=== PATIENT | female | born 1995 ===

== ENCOUNTER 2021-11-21 10:57 | Inpatient (IN) | payer OTHER ==
[~2021-11-21] VITALS: Ht 165.1 cm; Wt 78.2 kg
[2021-11-28] VITALS (51 sets, daily range): BP systolic 91–131; BP diastolic 51–82; PULSE 87–125; TEMP 97.7–98.5
--- NOTE | 2021-11-28 06:25 | NUR ---
0625-39.0 G2L1 Ambulatory to LDR 3 for scheudled induction of labor. Reports good EFM. Denies LOF or vaginal bleeding. Assisted into gown and placed on EFM. VSS. Reviewed plan of care, consents reivewed and signed. Assessment complete. IV to left hand by Ray Jesus RN. Blood collected and sent to lab per orders IVF, see EMAR.
--- NOTE | 2021-11-28 06:25 | NUR ---
0625- PATIENT AMBULATROY TO LABOR ROOM 3 WITH SPOUSE. PATIENT ORIENTED TO LABOR ROOM AND ASSISTED INTO A GOWN. EFM AND TOCO TRACING WELL. ASSESSMENT COMPLETE, CONSENTS EXPLAINED AND SIGNED, QUESTIONS ASKED AND ANSWERED. PATIENT REPORTS MILD CONTRACTIONS BEFORE ARRIVAL, NO FLUID LEAKING OR BLEEDING.
[2021-11-28] MEDS ORDERED: PRENATAL (06:55)
[2021-11-28] MEDS ORDERED: ZOFRAN ODT4 MG PO (06:56)
[2021-11-28 07:22] LABS: MEAN CELL VOLUME 82 fl (80.0-100.0); MEAN CORPUSCULAR HEMOGLOBIN 27 pg (27-31); MEAN CORPUSCULAR HGB CONC 33 g/dl (33.0-37.0); MEAN PLATELET VOLUME 10.6 fl (7.4-10.4); PLATELET COUNT 186 K/mm3 (130-400); RED BLOOD COUNT 3.74 M/mm3 (4.10-5.30); REDCELL DISTRIBUTION WIDTH-CV 14.3 % (11.5-14.5)
[2021-11-28 07:27] LABS: HEMATOCRIT 30.6 % (37.0-47.0)
[2021-11-28 08:30] LABS: BAND 1 % (0-10); EOSINOPHIL 1 % (0-4); HYPOCHROMIA 1+; LYMPHOCYTE 30 % (20.0-51.0); NEUTROPHILS 66 % (42.0-75.2); PLATELET ESTIMATE NORMAL (NORMAL)
--- NOTE | 2021-11-28 09:13 | NUR ---
0913-Dr. Azul on unit. Updated on patient. MD reviews FHR monitor while at desk. No new orders.
--- NOTE | 2021-11-28 12:00 | NUR ---
1200-Dr. Azul on unit. Reviews FHR monitor. 1206-SVE by /-3, AROM by clear fluid noted. Repositioned WL and updated on plan of care.
--- NOTE | 2021-11-28 12:40 | NUR ---
1240-Patient up to ambualte with telemetry EFM monitor in place. 1300-Patient returned to room. Requestes Antoni. Jessi,PROFILE TRIMMER notified. IVF bolus started.
--- NOTE | 2021-11-28 13:30 | NUR ---
1320- C. CRISTINA SANTIAGO IN PATIENT ROOM TO PLACE EPIDURAL. PATIENT REPOSITIONED TO SITTING ON SIDE OF BED FOR EPIDURAL. TOCO TRACING. EFM NOT TRACING WELL, THIS RN AT BEDSIDE READJUSTING WHILE CHEMICAL RESEARCH WORKER PLACES EPIDURAL. 1327- TEST DOSE GIVEN. PATIENT TOLERATES WELL. PATIENT REPOSITIONED IN BED. EFM AND TOCO TRACING WELL.
--- NOTE | 2021-11-28 15:15 | NUR ---
DIFFICULTY TRACING EFM DURING CONTRACTIONS. RN AT BEDSIDE REPOSITIONING PATIENT.
--- NOTE | 2021-11-28 15:20 | NUR ---
1520-Patient to LL side lying hip release. RN at bedside throughout. 1526-Patient to RL side lying hip release. RN at bedsdie throughout. Difficulty tracing FHR due to positioning. Frequently adjusting EFM. 1534-Patient to RL with LL in [facility]. 1550-Patient moved to [facility]. Variable and late decels in FHR Pit off. 1600-SVE 6-7/80/-2. Dr. Azul updated. Pit to 10mu/min per MD order. See physician notification. 1603-Late decel lasting 50 seconds. Pit turned back off. 1609-Dr. Azul called back to unit. Reports having reviewed strip. RN udpated pit turned off after last order to half pit. MD agrees with RN to leave pit off at this time. RN pulling ephedrine at this time to treat BP 93/56. 1611-Ephedrine given , see EMAR. 1620-Maternal BP 98/56 HR 108.
--- NOTE | 2021-11-28 16:45 | NUR ---
1646-Dr. Azul on unit SVE by 1.
--- NOTE | 2021-11-28 17:45 | NUR ---
174- IN PATIENTS ROOM. SVE /+2. SET UP FOR DELIVERY. 175- PATIENT BEGINS PUSHING WITH CONTRACTIONS MD AT BEDSIDE. MOVES VERTEX WELL. 1758- SPONTANEOUS OF HEAD AND BODY. PITOCIN STOPPED. 1804- SPONTANEOUS DELIVERY OF INTACT PLACENTA. PITOCIN STARTED AT 333mU ORDERED AND PER PROTOCOL. FIRST DEGREE BY PHYSICIAN, PERICARE PROVIDED, PLAN OF CARE UPDATED.
[2021-11-28] MEDS ORDERED: MOTRIN 800800 MG/TAB PO (20:37)
[2021-11-29 01:30] VITALS: BP 101/59; PULSE 80; TEMP 97.6
[2021-11-29 05:25] VITALS: BP 109/68; PULSE 95; TEMP 97.5
[2021-11-29 07:59] VITALS: BP 92/61; PULSE 96; TEMP 97.4
--- NOTE | 2021-11-29 12:01 | NUR ---
Chaplalin rounds: [employer] services offered to Patient. Patient declined.
[2021-11-29 12:02] VITALS: BP 117/75; PULSE 96; TEMP 97.8
[2021-11-29 16:10] VITALS: BP 107/71; PULSE 98; TEMP 97.3
[2021-11-29 18:40] VITALS: BP 106/65; PULSE 89; TEMP 97.9
--- NOTE | 2021-11-29 19:50 | NUR ---
DISCHARGE INSTRUCTIONS REVIEWED WITH PT AND SPOUSE. QUESTIONS ENCOURAGED AND ANSWERED. UNDERSTANDING VERBALIZED. PT PACKING UP PERSONAL BELONGING, WILL NOTIFY STAFF WHEN READY TO DISCHARGE.
--- NOTE | 2021-11-29 20:20 | NUR ---
PT AMBULATED WITH STEADY GAIT OFF UNIT WITH DISCHARGE PAPER IN HANDS, ACCOMPANIED BY SPOUSE WITH BABY IN CARSEAT. THIS NURSE ACCOMPANIED PT TO ED ENTRANCE/EXIT.
== END 2021-11-29 20:20 | disposition home or self-care (01) | DRG 807 ==
LOC: LDR 11-28 06:17 → OB 11-28 10:57
PROVIDERS: ADMIT Obstetrics & Gynecology
PROC: 10E0XZZ Delivery of Products of Conception, External Approach (ICD-10-PCS; principal; 2021-11-28)
PROC: 0HQ9XZZ Repair Perineum Skin, External Approach (ICD-10-PCS; 2021-11-28)
PROC: 10907ZC Drainage of Amniotic Fluid, Therapeutic from Products of Conception, Via Natural or Artificial Opening (ICD-10-PCS; 2021-11-28)
DX: O99.02 Anemia complicating childbirth (principal); Z37.0 Single live birth; D64.9 Anemia, unspecified; O70.0 First degree perineal laceration during delivery; Z3A.39 39 weeks gestation of pregnancy
CPT/HCPCS: J2590; J7120